=== PATIENT | male | born 1935 | race African-American/Black ===

== ENCOUNTER 2016-05-14 20:36 | Emergency (ER) | payer MEDICARE, BC ==
[~2016-05-14] VITALS: Ht 182.9 cm; Wt 78.5 kg
[~2016-05-14 20:36] MED LIST: AMLO5TAB2 PO; ASPI81TA2 PO; ATOR20TA58 PO; ATOR40TA59 PO; AZIT500T PO; CLIN300C86 PO; CLOP75TA27 PO; FERR-26 PO; HYDR-2868 PO; HYDR-971 PO; HYDR12.53 PO; IBUP-1060 PO; LISI10TA2 PO; LISI30TA4 PO; LISI40TA PO; METO25TA4 PO; METO50TA2 PO; NIAC500T PO; OMEP40CA2 PO; POLY10DR3 OD; SIMV20TA3 PO; TAMS0.4C2 PO
[2016-05-14] MEDS ORDERED: LABETALOL 20 MG/4 ML DISP.SYRIN. IVP ONE (21:30)
[2016-05-14 21:32] LABS: BASO % 1 % (0-3); EOS % 3 % (0-3); HEMATOCRIT 50.5 % (39.0-53.0); HEMOGLOBIN 16.7 g/dL (13.0-17.5); LYMPH # 2.3 x10^3/uL (1.0-4.8); LYMPH % 43 % (24-48); MEAN CORPUSCULAR HEMOGLOBIN 30 pg (25-35); MEAN CORPUSCULAR HGB CONC 33 g/dL (31-37); MEAN CORPUSCULAR VOLUME 92 fL (79-100); MONO % 10 % (0-9); NEUT % 43 % (31-73); PLATELET COUNT 239 x10^3/uL (140-400); RED BLOOD COUNT 5.51 x10^6/uL (4.30-5.70); RED CELL DISTRIBUTION WIDTH 14.2 % (11.5-14.5); WHITE BLOOD COUNT 5.4 x10^3/uL (4.0-11.0)
[2016-05-14 21:57] LABS: CALCIUM 9.4 mg/dL (8.5-10.1); CREATININE 1.2 mg/dL (0.7-1.3); GFR 70.9; POTASSIUM 4.2 mmol/L (3.5-5.1)
[2016-05-14 22:00] LABS: ALBUMIN 3.9 g/dL (3.4-5.0); DIRECT BILIRUBIN 0.1 mg/dL (0.0-0.2); MAGNESIUM 2.2 mg/dL (1.8-2.4); TOTAL BILIRUBIN 0.6 mg/dL (0.2-1.0); TOTAL PROTEIN 7.6 g/dL (6.4-8.2)
--- NOTE | 2016-05-14 22:11 | PHYS DOC ---
Past Medical History Past Medical History: CAD, GERD, High Cholesterol, Hypertension, Pancreatitis Past Surgical History: Angioplasty, Coronary Bypass Surgery, Other Additional Past Surgical Histo: Right shoulder, back surgery Alcohol Use: None Drug Use: None Adult General Chief Complaint Chief Complaint: HYPERTENSION HPI HPI 72-year-old male presenting to the emergency department today with high blood pressure. Reports his blood pressure being over 200 home. He also has a headache. He denies numbness weakness tingling. He denies chest pain shortness of breath flank pain hematuria or decreased urination. He denies palpitations. Onset today. Location vascular. Duration intermittent. No alleviating factors. He forgot to take his blood pressure medication this morning however did take approximate 2 hours ago. Review of systems is negative for fevers chills chest pain shortness of breath or oliguria. All other review of systems is negative unless otherwise noted in history of present illness. Review of Systems Review of Systems SEE ABOVE. Current Medications Current Medications Current Medications Medications (Trade) Dose Ordered Sig/Wander Start Time Stop Time Status Last Admin Dose Admin Labetalol HCl (Normodyne) 20 mg 1X ONCE 05/14/16 21:30 05/14/16 21:31 DC Allergies Allergies Allergies Coded Allergies Type Severity Reaction Last Updated Verified Penicillins Allergy Intermediate 03/12/16 No Physical Exam Physical Exam Constitutional: Well developed, well nourished, no acute distress, non-toxic appearance. HENT: Normocephalic, atraumatic, bilateral external ears normal, oropharynx moist, no oral exudates, nose normal. [] Eyes: PERRLA, EOMI, conjunctiva normal, no discharge. Neck: Normal range of motion, no tenderness, supple, no stridor. [] Cardiovascular:Heart rate regular rhythm, no murmur Lungs & Thorax: Bilateral breath sounds clear to auscultation Abdomen: Bowel sounds normal, soft, no tenderness, no masses, no pulsatile masses. [] Skin: Warm, dry, no erythema, no rash. Back: No tenderness, no CVA tenderness. [] Extremities: No tenderness, no cyanosis, no clubbing, ROM intact, no edema. Neurologic: Alert and oriented X 3, normal motor function, normal sensory function, no focal deficits noted. [] Psychologic: Affect normal, judgement normal, mood normal. [] Current Patient Data Vital Signs Vital Signs Date Time Temp Pulse Resp B/P Pulse Ox O2 Delivery O2 Flow Rate FiO2 05/14/16 20:46 98.6 80 16 203/116 97 Room Air 98.6 Lab Values Laboratory Tests Test 05/14/16 20:50 White Blood Count 5.4x10^3/uL (4.0-11.0) Red Blood Count 5.51x10^6/uL (4.30-5.70) Hemoglobin 16.7g/dL (13.0-17.5) Hematocrit 50.5% (39.0-53.0) Mean Corpuscular Volume 92fL (79-100) Mean Corpuscular Hemoglobin 30pg (25-35) Mean Corpuscular Hemoglobin Concent 33g/dL (31-37) Red Cell Distribution Width 14.2% (11.5-14.5) Platelet Count 239x10^3/uL (140-400) Neutrophils (%) (Auto) 43% (31-73) Lymphocytes (%) (Auto) 43% (24-48) Monocytes (%) (Auto) 10% (0-9) H Eosinophils (%) (Auto) 3% (0-3) Basophils (%) (Auto) 1% (0-3) Neutrophils # (Auto) 2.3x10^3uL (1.8-7.7) Lymphocytes # (Auto) 2.3x10^3/uL (1.0-4.8) Monocytes # (Auto) 0.6x10^3/uL (0.0-1.1) Eosinophils # (Auto) 0.1x10^3/uL (0.0-0.7) Basophils # (Auto) 0.0x10^3/uL (0.0-0.2) Sodium Level 143mmol/L (136-145) Potassium Level 4.2mmol/L (3.5-5.1) Chloride Level 105mmol/L (98-107) Carbon Dioxide Level 27mmol/L (21-32) Anion Gap 11 (6-14) Blood Urea Nitrogen 16mg/dL (8-26) Creatinine 1.2mg/dL (0.7-1.3) Estimated GFR (Cockcroft-Gault) 70.9 Glucose Level 76mg/dL (70-99) Calcium Level 9.4mg/dL (8.5-10.1) Phosphorus Level 3.0mg/dL (2.6-4.7) Magnesium Level 2.2mg/dL (1.8-2.4) Total Bilirubin 0.6mg/dL (0.2-1.0) Direct Bilirubin 0.1mg/dL (0.0-0.2) Aspartate Amino Transferase (AST) 26U/L (15-37) Alanine Aminotransferase (ALT) 25U/L (16-63) Alkaline Phosphatase 100U/L (46-116) Troponin I Quantitative < 0.017ng/mL (0.000-0.055) IB-Btu-Z-Type Natriuretic Peptide 195pg/mL (0-449) Total Protein 7.6g/dL (6.4-8.2) Albumin 3.9g/dL (3.4-5.0) Lipase 140U/L (73-393) Laboratory Tests 05/14/16 20:50 Laboratory Tests 05/14/16 20:50 EKG EKG []EKG shows sinus rhythm with regular rate. Normal intervals. Normal axis. ST segments are congruent. Not suggestive of ACS. Reviewed by myself. Radiology/Procedures Radiology/Procedures []Chest x-ray reviewed by myself shows no obvious infiltrate or pneumothorax present. No obvious acute cardiopulmonary process present. Course & Med Decision Making Course & Med Decision Making Pertinent Labs and Imaging studies reviewed. (See chart for details) [] 80-year-old male presenting to the emergency department today with high blood pressure headache. On EKG monitoring system the patient was noted to be in bigeminy and had multiple PVCs while in the emergency department. IV labetalol given for blood pressure. Patient was otherwise only symptomatic with a headache. Blood work was obtained showed a normal CBC. Chemistry panel unremarkable. Magnesium normal. Phosphorus normal. Given the patient's multiple PVCs the patient was referred to our cardiology team for possible holter placement, further evaluation workup and care. I discussed the case with the patient's primary care Dr. Yu who will be able to arrange close follow-up. Dragon Disclaimer Dragon Disclaimer This electronic medical record was generated, in whole or in part, using a voice recognition dictation system. Departure Departure Impression: Primary Impression: Hypertension Additional Impressions: Headache PVC (premature ventricular contraction) Disposition: 01 HOME, SELF-CARE Condition: STABLE Referrals: CATRACHITO YU MD (PCP) TANIA ESTRADA MD 1-2 days Patient Instructions: Hypertension, Premature Ventricular Contraction Additional Instructions: Thank you for allowing us to participate in your care today. Followup with Dr. Estrada in 2-3 days for evalation of multiple PVCs. If you do not have a primary care provider you can ask for a list of our primary care providers. Return to the emergency department you have any new or concerning findings. This should be evaluated by the primary care physician and any necessary consulting services for continued management within a few days after discharge. Return to emergency room if you have any new or concerning symptoms including but not limited to fever, chills, nausea, vomiting, intractable pain, any new rashes, chest pain, shortness of air, uncontrolled bleeding, difficulty breathing, and/or vision loss. You may have been prescribed medication that can change in your level of thinking and ability to operate machinery. These medications include hydrocodone and Ativan. Also, Benadryl has been known to do this as well. Be sure to check with your pharmacist and ask if the medications you've prescribed can affect your level of consciousness. I recommend not operating heavy machinery or driving while on medication such as these. Problem Qualifiers AG JONES MD May 14, 2016 22:12
[2016-05-14 23:11] VITALS: BP 136/63
--- NOTE | 2016-05-15 06:43 | EKG ---
[address] [place] [address] Test Date: 2016-05-14 Test Time: 20:57:26 Pat Name: TONA ALCOCER Department: Room: Gender: M Device Engineer: : 1935 Requested By: AG JONES Order Number: [id number] Reading MD: Measurements Intervals [place] Rate: 73 P: 37 MA: 166 QRS: -17 QRSD: 72 T: 64 QT: 376 QTc: 418 Interpretive Statements SINUS RHYTHM LEFT ATRIAL ABNORMALITY LEFTWARD AXIS ABNORMAL ECG RI6.01 No previous ECG available for comparison
--- NOTE | 2016-05-15 07:50 | RAD ---
Portable chest, 05/14/2016: History: Hypertension and PVCs Comparison is made to a study from 03/12/2016. There has been a previous median sternotomy. The heart size and pulmonary vascularity are normal. There is tortuosity and calcific plaquing of the thoracic aorta. No pulmonary infiltrates are seen. There is no evidence of pleural fluid. IMPRESSION: No acute cardiopulmonary abnormality is detected.
== END 2016-05-14 23:36 | disposition home or self-care (01) ==
LOC: ER 20:36
DX: I10 Essential (primary) hypertension (principal); I25.10 Atherosclerotic heart disease of native coronary artery without angina pectoris; E78.00 Pure hypercholesterolemia, unspecified; R51 Headache; I49.3 Ventricular premature depolarization; Z95.1 Presence of aortocoronary bypass graft; Z88.0 Allergy status to penicillin
CPT/HCPCS: 36415; 71010; 80048; 80076; 83690; 83735; 83880; 84100; 84484; 85027; 93005; 96374; 99285; J3490

== ENCOUNTER 2016-07-03 10:17 | Day surgery (SDC) | payer MEDICARE, BC ==
[~2016-07-03] VITALS: Ht 177.8 cm; Wt 77.1 kg
[~2016-07-03 10:17] MED LIST changes: +ATORVASTATIN CA80 MG PO; +CEFAZOLIN 2GM PREMIX 50 ML IV PRN; +DONE10TA7 PO; +EZET10TA3 PO; +FENTANYL PF 100 MCG/2 ML VIAL. IV PRN; +HYDROMORPHONE 2 MG/ML VIAL. IV PRN; +IV RINGERS,LACTATED 1000ML 1,000 ML IV SCH; +LIDOCAINE 1% 1 ML SYRINGE. ID PRN; +MORPHINE SULFATE 2 MG/ML DISP.SYRIN. IV PRN; +ONDANSETRON PF 4 MG/2 ML VIAL. IV PRN; +SULF1TAB24 PO
[2016-07-03] MEDS ORDERED: BUPIVAC MPF-EPI 0.5%-1:200000 30 ML VIAL. ONE (11:22)
[2016-07-03] MEDS ORDERED: IV RINGERS,LACTATED 1000ML 1,000 ML IV SCH (11:30)
[2016-07-03] MEDS ORDERED: FENTANYL PF 100 MCG/2 ML VIAL. ONE (11:59)
[2016-07-03] MEDS ORDERED: PROPOFOL 20 ML IV ONE (12:00)
--- NOTE | 2016-07-03 12:00 | PDOC ---
SURGICAL PROGRESS NOTE Subjective 81 yo M with painful RIH TO OR for repair R/B/A d/w pt NSCQIP calculator performed and placed on chart Office Note H&P reviewed and unchanged right side marked with patient. Vital Signs Vital Signs Date Time Temp Pulse Resp B/P Pulse Ox O2 Delivery O2 Flow Rate FiO2 07/03/16 11:14 98.3 62 18 149/92 98 Room Air 98.3 ANA M VANN MD Jul 03, 2016 12:00
[2016-07-03] MEDS ORDERED: EPHEDRINE PF IN SALINE 50 MG/5 ML DISP.SYRIN. IV ONE (12:18)
[2016-07-03] MEDS ORDERED: DEXAMETHASONE SOD PHOS 20 MG/5 ML VIAL. ONE (12:21)
[2016-07-03] MEDS ORDERED: ONDANSETRON PF 4 MG/2 ML VIAL. ONE (12:21)
[2016-07-03] MEDS ORDERED: MORPHINE SULFATE 10 MG/ML VIAL. ONE (12:51)
[2016-07-03] MEDS ORDERED: SEVOFLURANE 61 TO 120 MINUTES. IH ONE (13:03)
--- NOTE | 2016-07-03 13:21 | PDOC ---
BRIEF OPERATIVE NOTE Pre-Op Diagnosis RIH Post-Op Diagnosis same Procedure Performed RIH repair with mesh Surgeon Mc Anesthesia Type: General, Local Blood Loss 10 IV Fluid 700 Specimens Obtained rih hernia sac and cord lipoma Findings indirect hernia Complications none Additional Remarks [id number] ANA M VANN MD Jul 03, 2016 13:21
[2016-07-03] MEDS ORDERED: HYDR-2678 PO (13:40)
[2016-07-03] MEDS ORDERED: DOCU-27 PO (13:40)
--- NOTE | 2016-07-03 14:21 | OP ---
DATE OF SURGERY: 07/03/2016 REFERRING PHYSICIAN: Dr. Catrachito Benitez. Thank you for the consult. PREOPERATIVE DIAGNOSIS: Right inguinal hernia with pain. POSTOPERATIVE DIAGNOSIS: Right inguinal hernia with pain. PROCEDURE: Right inguinal hernia repair with mesh. SURGEON: Naeem Vann MD ESTIMATED BLOOD LOSS: 10 mL. FLUIDS: 700 mL. COMPLICATIONS: None. FINDINGS: Large indirect hernia chronically scarred. INDICATIONS: A 81-year-old male with right groin bulge and pain who was identified to have a reducible right inguinal hernia. Inguinal hernia repair is indicated given the patient's pain and concern for possible incarceration despite his history of smoking. The patient was informed of the risks, benefits, alternatives to procedure, risks including but not limited to bleeding, infection, damage to surrounding structures, risk of anesthesia, risk of an open procedure, risk of hernia recurrence, and risk of nerve injury. NSQIP risk calculator was used and documented in the chart. The patient appears to understand, and his insightful questions were answered, and he agreed to proceed. DESCRIPTION OF PROCEDURE: After obtaining informed consent, the patient was taken to the operating room, induced under general endotracheal anesthetic. The patient was prepped and draped in the usual fashion in the right groin area. Marcaine 0.5% with epinephrine was injected in transverse incision. Incision was made using electrocautery. Subcutaneous tissue was divided using electrocautery. Cheryl's fascia was divided using electrocautery. External oblique was identified by the direction of its fibers, was noted to be somewhat bruised especially at the external ring. The external oblique was opened in the direction of its fibers using a 15-blade scalpel and Metzenbaum scissors. Spermatic cord was identified and wrapped around with a [place] drain. The floor of the inguinal canal was intact without evidence of direct hernia. An indirect hernia was identified on the medial anterior aspect of the spermatic cord. Spermatic cord structures were maintained without injury including the vas deferens by palpation surrounding it by a [place] drain. Large cord lipoma and the indirect hernia sac were sequentially dissected down using careful sharp and blunt dissection. The hernia sac was especially chronically scarred, and there was no viscera within it. High ligation was performed using a 3-0 Vicryl stitch. The hernia sac and cord lipoma were resected and passed out of field and sent to Pathology for evaluation. A large mesh plug was placed in the defect. The external mesh onlay was placed around the spermatic cord and reapproximated the internal ring and tacked in and secured with a 0 Vicryl stitch. The external oblique was then secured over this using continuous 3-0 Vicryl stitch. Subcutaneous tissues were reapproximated with 3-0 Vicryl. Skin incisions were approximated with 4-0 Monocryl in subcuticular fashion. Sterile dressing was placed over all wounds. The patient tolerated the procedure well and was discharged to Recovery Room in stable condition. All counts were correct. There were no immediate complications. NAEEM VANN MD DR: ANATOLY/bill JOB#: [id number] / [id number] CATRACHITO Hoffmann MD
[2016-07-03] MEDS: PROCHLORPERAZINE 10 MG/2 ML VIAL. IV PRN ×2 (14:50→15:07)
[2016-07-03] MEDS ORDERED: HALOPERIDOL LACTATE 5 MG/ML VIAL. IVP PRN (16:45)
[2016-07-03] MEDS ORDERED: METOCLOPRAMIDE HCL 10 MG/2 ML VIAL. IV ONE (16:45)
[2016-07-03] MEDS ORDERED: SCOPOLAMINE 1.5MG PATCH. TD ONE (17:00)
[2016-07-03 17:01] VITALS: BP 147/72
[2016-07-03] MEDS ORDERED: ONDANSETRON PF 4 MG/2 ML VIAL. IV PRN (17:26)
--- NOTE | 2016-07-05 14:44 | PATHOLOGY ---
PATHOLOGY REPORT * * * * * * * * FINAL DIAGNOSIS: Segments of focal mesothelial-lined fibromembranous and fibroadipose tissue, right inguinal hernia repair: - Lipoma of cord. - Hernia sac showing focal reactive mesothelial hyperplasia, focal submesothelial reactive fibrosis, and congestion. (JPM:; d/t: 07/05/16) REPORT ELECTRONICALLY SIGNED BY: Keith Johnson M.D. DATE/TIME: 07/05/2016 14:43 * * * * * * * * GROSS PATHOLOGY: A Received in formalin labeled "Tona Reynaga Sr - right inguinal hernia sac and cord lipoma," are several segments of blood-tinged, pink-casillas to yellow-casillas membranous and fibroadipose tissue, consistent with a hernia sac, measuring 4.3 x 1.5 x 1.4 cm in aggregate. No nodules or lesions are identified. Also received is a segment of lobulated fibroadipose tissue, consistent with a lipoma, measuring 5.5 x 1.9 x 1.3 cm in maximum dimensions. Sectioning reveals homogeneous, bright yellow cut surfaces. Rock [employer] sections to include the hernia sac and lipoma are submitted in cassette A1. (TTL; 07/04/2016) INITIAL CPT CODE(S): 38698 Professional services performed [place] [address] Technical services performed by [facility] at [address] [place] [address], [facility] [address], [place] [address]. SPECIMEN(S) RECEIVED: A.Right inguinal hernia sac and cord lipoma CLINICAL HISTORY: Right inguinal hernia PATIENT: TONA REYNAGA SR /AGE: 3 1935 (Age: 81) PATIENT #: [id number] ALT CASE #: SPECIMEN COLLECTION DATE: 07/03/2016 SPECIMEN RECEIVED DATE: 07/04/2016 [facility] - [address] [place] [address] - PHONE: [phone] * * * END OF REPORT * * *
== END 2016-07-03 17:30 | disposition home or self-care (01) ==
LOC: SURG 10:17 → MERGE 12:00 → SURG 17:30
PROVIDERS: ATTEND Surgery
DX: K40.90 Unilateral inguinal hernia, without obstruction or gangrene, not specified as recurrent (principal); K21.9 Gastro-esophageal reflux disease without esophagitis; I25.10 Atherosclerotic heart disease of native coronary artery without angina pectoris; E78.00 Pure hypercholesterolemia, unspecified; I10 Essential (primary) hypertension; Z98.41 Cataract extraction status, right eye; Z98.42 Cataract extraction status, left eye; D17.6 Benign lipomatous neoplasm of spermatic cord
CPT/HCPCS: 49505; 88304; C1781; J0690; J0780; J1100; J2270; J2405; J2704; J2765; J3010; J3490

== ENCOUNTER → 2016-07-25 | Outpatient (CLI) | payer MEDICARE ==
[2016-07-03 17:01] VITALS: BP 147/72
[~2016-07-25] MED LIST changes: -CEFAZOLIN 2GM PREMIX 50 ML IV PRN; +DOCU-27 PO; -FENTANYL PF 100 MCG/2 ML VIAL. IV PRN; +HYDR-2678 PO; -HYDROMORPHONE 2 MG/ML VIAL. IV PRN; -IV RINGERS,LACTATED 1000ML 1,000 ML IV SCH; -LIDOCAINE 1% 1 ML SYRINGE. ID PRN; -MORPHINE SULFATE 2 MG/ML DISP.SYRIN. IV PRN; -ONDANSETRON PF 4 MG/2 ML VIAL. IV PRN
--- NOTE | 2016-07-26 03:59 | PAIN ---
DATE OF SERVICE: 07/25/2016 INITIAL CONSULTATION CHIEF COMPLAINT: Anterior left chest pain. HISTORY OF PRESENT ILLNESS: This is a 81-year-old male who presents with history of pain for about 2 years, worse over the past 1 year. He had open heart surgery with sternotomy in 04/2014 and did well for about a year, but over the past year, the pain has been beginning to increase in front of his chest and just left of his sternum anteriorly only. The patient reports the pain does not radiate anywhere, but it is worse with deep breathing, movement of his chest and sternum with rotational movements, especially deep breathing or using his upper extremities such as lifting, using his pectoral muscles to lift or bend or push off an item with even minimal pressure. The patient reports only on the left side, no significant pain on the right side. The patient does have sternal wires holding the sternum together, which were placed 2 years ago, but again did well for the first year. The pain has only been there after he had an inguinal hernia repair on the right side, which was more recently and the pain has been noticeable after that time. The patient reports no radiation of pain. No other complaints at this time. The pain is described as sharp, throbbing, stabbing, changes during the day, worse at night, worse with deep breath and coughing, change in positions. The patient reports it awakens him from sleep at least 2-3 times at night every night. It does not affect his bowel or bladder control or his ability to ambulate or walk, but is difficult with using his upper extremities or his upper torso with any activity at all. PAST MEDICAL HISTORY: Significant for hypertension, shortness of breath, cigarette smoking, gastroesophageal reflux, coronary artery disease. PAST SURGICAL HISTORY: Previous surgeries include coronary artery bypass grafting in 2014, lumbar diskectomy and laminectomy, also cervical diskectomy and laminectomy, previous cataract extractions, right shoulder surgery, coronary stents placed in the past, left inguinal hernia repair, and right inguinal hernia repair. CURRENT MEDICATIONS: Include daily baby aspirin, omeprazole, lisinopril, atorvastatin, amlodipine, tamsulosin, Zetia, metoprolol, Viagra. ALLERGIES: THE PATIENT IS ALLERGIC TO PENICILLIN. FAMILY HISTORY: Significant for cardiovascular disease. SOCIAL HISTORY: The patient smokes 5 or less cigarettes a day, continues to smoke for the last 50 years. The patient does not drink alcohol, does not use any other illegal or illicit drugs or other substances. The patient lives locally on his own. REVIEW OF SYSTEMS: The patient's review of systems is positive for those items mentioned in the history of present illness. All systems reviewed and otherwise negative. It is complete, full and well documented on the patient's chart. PHYSICAL EXAMINATION: VITAL SIGNS: Today, the patient's blood pressure is 147/88, pulse 80, respirations 18, temperature 98.1 degrees Fahrenheit. Height is 6 feet, weight is 168 pounds. GENERAL: The patient is awake, alert, oriented, appropriate, very pleasant demeanor. HEENT: Shows normocephalic and atraumatic. Extraocular movements are intact and symmetrical. Oral cavity: Mucous membranes are moist and pink. Dentition is intact. NECK: Shows anterior throat supple without palpable lymphadenopathy noted. Swallow reflex is symmetrical. CHEST: Shows normal on inspection. Breath sounds are clear to auscultation bilaterally. HEART: Shows S1 and S2 clear. Previous well-healed surgical sternotomy scars noted. Easily palpable sternal wires underneath the scar, but are not protruding in any way and are not specifically tender with palpation over these regions. With palpation on the left lateral border and just beyond this on the costochondral border of the left sternum, significant tenderness in 5 of the costochondral joint cartilages, superior to inferior, essentially the distance of the upper 3 quarters of the sternum laterally. No specific radiation of pain, but very tender, very painful areas. Right side shows no tender areas in the same region on the right lateral sternum and the costochondral borders. IMPRESSION: 1. 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 2. Cigarette smoking. 3. Hypertension. 4. Coronary artery disease. PLAN: Options were discussed with the patient including conservative medical management, physical therapy, TENS unit, ultrasound treatment and interventional technique. She would like to pursue interventional techniques. We discussed costochondral joint injections using C-arm fluoroscopic guidance to identify the areas of the costochondral cartilages in the ribs. The patient would like to proceed with this. Risks were discussed including but not limited to bleeding, infection, possibility of intravascular injection sequelae, spread of local anesthetic and numbness, pneumothorax, side effects of steroid medications, exposure to fluoroscopy and poor results regarding pain control. The patient understands and wishes to proceed. The patient will return to the clinic in approximately 2 weeks for followup. He was counseled on return appointment, activity level and side effects to be aware of. ALEXANDRE PEDRO MD DR: JUSTO/bill JOB#: [id number] / [id number]
== END | disposition home or self-care (01) ==
LOC: PNCL 12:49
PROVIDERS: ATTEND Anesthesiology
DX: R07.89 Other chest pain (principal); I10 Essential (primary) hypertension; F17.210 Nicotine dependence, cigarettes, uncomplicated; I25.10 Atherosclerotic heart disease of native coronary artery without angina pectoris; E78.00 Pure hypercholesterolemia, unspecified; K21.9 Gastro-esophageal reflux disease without esophagitis; Z82.49 Family history of ischemic heart disease and other diseases of the circulatory system; Z98.41 Cataract extraction status, right eye; Z98.42 Cataract extraction status, left eye; Z87.39 Personal history of other diseases of the musculoskeletal system and connective tissue
CPT/HCPCS: 20600; 77002

== ENCOUNTER → 2016-08-08 | Outpatient (CLI) | payer MEDICARE ==
[~2016-08-08] MED LIST changes: +BUPIVACAINE MPF 0.5% 30 ML VIAL. ONE; +methylPREDNISolone ACETATE 80 MG/ML VIAL. ONE
--- NOTE | 2016-08-09 09:43 | PAIN ---
DATE OF SERVICE: 08/08/2016 HISTORY OF PRESENT ILLNESS: The patient is a 81-year-old male who returns for followup status post left sternocostal joint injections on 07/25/2016. The patient reports he did fairly well initially, but the pain returned fairly quickly after a day or two with no long-lasting decrease in pain. The patient reports still significant pain in the left side of the chest, worse with lying down on the left side trying to sleep, it awakens him several times, he has to reposition. He is trying to sleep on his back, but he is having difficulty doing this. The patient reports his pain is anywhere from a 7 to a 9 on a scale of 10, it is currently 7 on exam today. The pain is sharp, tight, shooting. It is off and on, but it is present and disturbing his sleep, mostly when he is lying on his left side. The patient reports no new motor or sensory deficits or other complaints, still with left-sided chest pain. PHYSICAL EXAMINATION: VITAL SIGNS: The patient's blood pressure is 155/101, pulse 80, respirations 18, temperature 98.6 degrees Fahrenheit, height is 6 feet, weight is 168 pounds. GENERAL: The patient is awake, alert, oriented, appropriate, very pleasant demeanor. HEENT: Shows normocephalic and atraumatic. The patient is wearing eyeglasses. Oral cavity shows mucous membranes are moist and pink. Dentition is intact. NECK: Shows anterior throat supple without palpable lymphadenopathy noted. Swallow reflex is symmetrical. Neck shows full rotational motion of the cervical spine without difficulty. CHEST: Shows normal with inspection. Previously well-healed surgical scar is noted in the midline. Breath sounds are clear to auscultation bilaterally. HEART: Shows S1 and S2 clear. No murmurs are auscultated. BACK: With palpation in the left sternal border and into the costochondral cartilages sternal chondral cartilages on the left side, very tender significantly, severely tender with palpation over the first 5 cartilages superiorly and inferiorly. Inferior to this, it is not significantly tender and no tenderness with further lateral palpation onto the ribs to the mid axillary line as well. No radiation of pain. Right side shows no significant tenderness over the sternocostal or costochondral cartilages on the right as well. Options were discussed with the patient and the patient's old chart was reviewed as his current medication regimen and updated. Current review of systems updated today as well. We will proceed with a left-sided sternocostal joint injection with fluoroscopic guidance. Risks were again discussed including but not limited to bleeding, infection, possibility of intravascular injection sequelae, spread of local anesthetic and numbness, absorption of local anesthetic, pneumothorax as well as C-arm exposure and poor results regarding pain control. The patient understands and wishes to proceed. The patient will return to the clinic in approximately 2 weeks for followup. He was counseled on his return appointment, activity level and side effects to be aware of. DIAGNOSIS: Left sternal chondritis. PROCEDURE: Left-sided sternocostal joint injections x 5 with C-arm fluoroscopic guidance under sterile prep and drape using local anesthetic. MEDICATION INJECTED: A total of 5 mL of 0.5% bupivacaine and a total of 80 mg of Depo-Medrol after negative aspiration at each level. CONDITION AT DISCHARGE: Stable. The patient tolerated the procedure well and had no complications. ALEXANDRE PEDRO MD DR: JUSTO/bill JOB#: [id number] / [id number]
== END | disposition home or self-care (01) ==
LOC: PNCL 10:52
PROVIDERS: ATTEND Anesthesiology
DX: M94.8X8 Other specified disorders of cartilage, other site (principal); E78.00 Pure hypercholesterolemia, unspecified; I10 Essential (primary) hypertension; Z72.0 Tobacco use; K21.9 Gastro-esophageal reflux disease without esophagitis; Z87.39 Personal history of other diseases of the musculoskeletal system and connective tissue; I25.10 Atherosclerotic heart disease of native coronary artery without angina pectoris
CPT/HCPCS: 20600; 77002; J1040; J3490

== ENCOUNTER 2016-09-02 03:41 | Emergency (ER) | payer MEDICARE ==
[~2016-09-02] VITALS: Ht 182.9 cm; Wt 76.2 kg
[~2016-09-02 03:41] MED LIST changes: +ASPI-630 PO; -ASPI81TA2 PO; -BUPIVACAINE MPF 0.5% 30 ML VIAL. ONE; +CLIN300C8 PO; -CLIN300C86 PO; -CLOP75TA27 PO; +CLOP75TA57 PO; +DOCU-109 PO; -DOCU-27 PO; +EZET10TA18 PO; -EZET10TA3 PO; -methylPREDNISolone ACETATE 80 MG/ML VIAL. ONE
[2016-09-02 04:59] VITALS: BP 199/96
[2016-09-02] MEDS ORDERED: LIDOCAINE 1% / SOD BICARB 8.4% 20 ML VIAL. IJ ONE (05:30)
--- NOTE | 2016-09-02 05:43 | PHYS DOC ---
Past Medical History Past Medical History: CAD, GERD, High Cholesterol, Hypertension, Pancreatitis Past Surgical History: Angioplasty, Coronary Bypass Surgery, Other Additional Past Surgical Histo: Right shoulder, back surgery Alcohol Use: None Drug Use: None Adult General Chief Complaint Chief Complaint: SKIN RASH/ABSCESS HPI HPI 81 yo male who presents with a left axillary abscess for the past few days that has been bothersome and preventing him from sleeping. Pt denies any fever or chills. He is non-diabetic. The abscess is approximately 2 cm and isolated to the left axillary area only. He denies any purulent drainage from the wound site. Review of Systems Review of Systems Constitutional: Denies fever or chills [] Eyes: Denies change in visual acuity, redness, or eye pain [] HENT: Denies nasal congestion or sore throat [] Respiratory: Denies cough or shortness of breath [] Cardiovascular: No additional information not addressed in HPI [] GI: Denies abdominal pain, nausea, vomiting, bloody stools or diarrhea [] : Denies dysuria or hematuria [] Musculoskeletal: Denies back pain or joint pain [] Integument: Denies rash or skin lesions [] Neurologic: Denies headache, focal weakness or sensory changes [] Endocrine: Denies polyuria or polydipsia [] Current Medications Current Medications Current Medications Medications (Trade) Dose Ordered Sig/Wander Start Time Stop Time Status Last Admin Dose Admin Lidocaine/Sodium Bicarbonate (Buffered Lidocaine 1%) 20 ml 1X ONCE 09/02/16 05:30 09/02/16 05:31 DC 09/02/16 05:15 20 ML Allergies Allergies Allergies Coded Allergies Type Severity Reaction Last Updated Verified Penicillins Allergy Intermediate Unknown 07/03/16 No Physical Exam Physical Exam Constitutional: Well developed, well nourished, no acute distress, non-toxic appearance. [] HENT: Normocephalic, atraumatic, bilateral external ears normal, oropharynx moist, no oral exudates, nose normal. [] Eyes: PERRLA, EOMI, conjunctiva normal, no discharge. [] Neck: Normal range of motion, no tenderness, supple, no stridor. [] Cardiovascular:Heart rate regular rhythm, no murmur [] Lungs & Thorax: Bilateral breath sounds clear to auscultation [] Abdomen: Bowel sounds normal, soft, no tenderness, no masses, no pulsatile masses. [] Skin: Warm, dry, mild area of fluctuance and erythema c/w abscess approximately 2 cm in diameter in the left axillary area. [] Back: No tenderness, no CVA tenderness. [] Extremities: No tenderness, no cyanosis, no clubbing, ROM intact, no edema. [] Neurologic: Alert and oriented X 3, normal motor function, normal sensory function, no focal deficits noted. [] Psychologic: Affect normal, judgement normal, mood normal. [] Current Patient Data Vital Signs Vital Signs Date Time Temp Pulse Resp B/P (MAP) Pulse Ox O2 Delivery O2 Flow Rate FiO2 09/02/16 04:59 98.0 72 17 199/96 (130) 99 Room Air 98.0 EKG EKG [] Radiology/Procedures Radiology/Procedures [] Course & Med Decision Making Course & Med Decision Making Pertinent Labs and Imaging studies reviewed. (See chart for details) This 81 yo male with an uncomplicated abscess had an incision and drainage and the area packed with iodoform gauze with significant relief of his symptoms. Pt was instructed to have the wound site reevaluated in the next 2-3 days and to return if he develops any worsening pain, swelling, or fever. Return precautions were provided and acknowledged by the patient. Dragon Disclaimer Dragon Disclaimer This electronic medical record was generated, in whole or in part, using a voice recognition dictation system. Incision and Drainage Indication: abscess Procedure: The patient was positioned appropriately. Local anesthesia was 1% lidocaine. An incision was then made over the apex of the lesion and serosanguinous material was expressed. The drainage cavity was irrigated and packed with sterile gauze. The patients tetanus status updated as needed. The patient tolerated the procedure well. Complications: none. Departure Departure Impression: Primary Impression: Abscess Disposition: 01 HOME, SELF-CARE Admitting Physician: Other Condition: STABLE Referrals: CATRACHITO YU MD (PCP) Patient Instructions: Abscess, [id number], Incision and Drainage, Care After Additional Instructions: Please follow up with your primary doctor in the next 2-3 days as discussed to have your wound rechecked and your gauze removed. Return to the ER if you develop any worsening of your symptoms. TUNG IRIZARRY DO Sep 02, 2016 05:43
== END 2016-09-02 05:56 | disposition home or self-care (01) ==
LOC: ER 03:41
DX: L02.412 Cutaneous abscess of left axilla (principal); I25.10 Atherosclerotic heart disease of native coronary artery without angina pectoris; K21.9 Gastro-esophageal reflux disease without esophagitis; E78.00 Pure hypercholesterolemia, unspecified; I10 Essential (primary) hypertension; Z95.1 Presence of aortocoronary bypass graft; Z88.0 Allergy status to penicillin
CPT/HCPCS: 10060; 99283-25

== ENCOUNTER 2016-09-15 10:12 | Emergency (ER) | payer MEDICARE ==
[~2016-09-15] VITALS: Ht 182.9 cm; Wt 77.1 kg
[2016-09-15 10:25] VITALS: BP 187/100
[2016-09-15] MEDS ORDERED: DIPHTH,PERTUSS(ACELL),TET TOX 0.5 ML DISP.SYRIN. VAX IM ONE (11:30)
[2016-09-15] MEDS ORDERED: LIDOCAINE 1% / SOD BICARB 8.4% 20 ML VIAL. IJ ONE (11:30)
[2016-09-15] MEDS ORDERED: MUPI15CR TP (12:14)
[2016-09-15] MEDS ORDERED: SULF1TAB24 PO (12:14)
--- NOTE | 2016-09-15 12:14 | PHYS DOC ---
Past Medical History Past Medical History: CAD, GERD, High Cholesterol, Hypertension, Pancreatitis Past Surgical History: Angioplasty, Coronary Bypass Surgery, Other Additional Past Surgical Histo: Right shoulder, back surgery Alcohol Use: None Drug Use: None Adult General Chief Complaint Chief Complaint: ABSCESS HPI HPI Patient is a 81 year old male with history of hypertension CAD pancreatitis high cholesterol who presents today with right axilla abscess for 1-1/2 weeks. Patient states he has had history of right axilla abscesses before. He states he was seen in the ED 2 weeks ago for similar abscess and it was drained. He states he was not sent home with anything. He states he was never given a tetanus shot. Review of Systems Review of Systems Constitutional: Denies fever or chills [] Eyes: Denies change in visual acuity, redness, or eye pain [] HENT: Denies nasal congestion or sore throat [] Musculoskeletal: Denies back pain or joint pain [] Integument: right axilla abscesses Neurologic: Denies headache, focal weakness or sensory changes [] Endocrine: Denies polyuria or polydipsia [] Current Medications Current Medications Current Medications Medications (Trade) Dose Ordered Sig/Wander Start Time Stop Time Status Last Admin Dose Admin Diphtheria/ Tetanus/Acell Pertussis (Boostrix) 0.5 ml ONCE ONCE 09/15/16 11:30 09/15/16 11:31 DC 09/15/16 11:08 0.5 ML Lidocaine/Sodium Bicarbonate (Buffered Lidocaine 1%) 20 ml 1X ONCE 09/15/16 11:30 09/15/16 11:31 DC 09/15/16 11:07 20 ML Allergies Allergies Allergies Coded Allergies Type Severity Reaction Last Updated Verified Penicillins Allergy Intermediate Unknown 07/03/16 No Physical Exam Physical Exam Constitutional: Well developed, well nourished, no acute distress, non-toxic appearance. [] HENT: Normocephalic, atraumatic, bilateral external ears normal, oropharynx moist, no oral exudates, nose normal. [] Skin: Right axilla 0.5 x 0.5 indurated area consistent with an abscess. The area has slight erythema, it is warm to touch and tender to palpate. Back: No tenderness, no CVA tenderness. [] Extremities: No tenderness, no cyanosis, no clubbing, ROM intact, no edema. [] Neurologic: Alert and oriented X 3, normal motor function, normal sensory function, no focal deficits noted. [] Psychologic: Affect normal, judgement normal, mood normal. [] Current Patient Data Vital Signs Vital Signs Date Time Temp Pulse Resp B/P (MAP) Pulse Ox O2 Delivery O2 Flow Rate FiO2 09/15/16 10:25 98.4 84 16 97 Room Air 98.4 EKG EKG [] Radiology/Procedures Radiology/Procedures Indication: abscess of the right axilla Procedure: The patient was positioned appropriately. Local anesthesia was 1% buffered lidocaine. An incision was then made using an 11 blade over the apex of the lesion and small amount of yellow bloody material was expressed. The drainage cavity was irrigated and covered with sterile gauze. Patients tetanus status updated as needed. The patient tolerated the procedure well. Complications: none.[] Course & Med Decision Making Course & Med Decision Making Pertinent Labs and Imaging studies reviewed. (See chart for details) Patient has right axilla abscess that was drained by me as noted in procedures. He was given tetanus shot. He was discharged with Bactroban and Bactrim. He was provided return precautions. He is to follow-up with his own PCP in 2 weeks. Dragon Disclaimer Dragon Disclaimer This electronic medical record was generated, in whole or in part, using a voice recognition dictation system. Departure Departure Impression: Primary Impression: Abscess of axilla, right Disposition: 01 HOME, SELF-CARE Condition: STABLE Referrals: CATRACHITO YU MD (PCP) follow up with your doctor in 1-2 weeks Patient Instructions: Abscess, Care After Additional Instructions: You were seen for right axilla abscess that was drained as noted in procedures. Please keep the area clean and dry. Use the medications provided as prescribed. Apply warm compresses to the area twice a day. Follow-up with your own doctor in 1-2 weeks. Come back to the ED if symptoms worsen. Scripts Mupirocin Calcium (BACTROBAN CREAM) 15 Gm Cream..g. 1 NICKY TP TID, #30 GM Prov: CORNELIA CHERRY APRN 09/15/16 Sulfamethoxazole/Trimethoprim (BACTRIM DS TABLET) 1 Each Tablet 1 TAB PO BID, #20 TAB Prov: CORNELIA CHERRY APRN 09/15/16 CORNELIA CHERRY APRN Sep 15, 2016 12:14
== END 2016-09-15 12:20 | disposition home or self-care (01) ==
LOC: ER 10:12
DX: L02.411 Cutaneous abscess of right axilla (principal); I25.10 Atherosclerotic heart disease of native coronary artery without angina pectoris; K21.9 Gastro-esophageal reflux disease without esophagitis; E78.00 Pure hypercholesterolemia, unspecified; I10 Essential (primary) hypertension; Z95.1 Presence of aortocoronary bypass graft; Z88.0 Allergy status to penicillin
CPT/HCPCS: 10060; 90471; 90715; 99283-25

== ENCOUNTER 2016-11-06 10:52 | Emergency (ER) | payer MEDICARE ==
[~2016-11-06] VITALS: Ht 180.3 cm; Wt 74.8 kg
[~2016-11-06 10:52] MED LIST changes: +MUPI15CR TP
[2016-11-06 11:20] VITALS: BP 199/105
[2016-11-06] MEDS ORDERED: ACET325T9 PO (11:36)
--- NOTE | 2016-11-06 11:37 | PHYS DOC ---
Past Medical History Past Medical History: CAD, GERD, High Cholesterol, Hypertension, Pancreatitis Past Surgical History: Angioplasty, Coronary Bypass Surgery, Other Additional Past Surgical Histo: Right shoulder, back surgery Alcohol Use: None Drug Use: None Adult General Chief Complaint Chief Complaint: KNEE INJURY HPI HPI 81-year-old male presenting to the emergency department today with right knee pain. He reports walking down a few stairs when he tripped and injured his right knee. He has a sharp mild pain that is associated with swelling. The pain is nonradiating intermittent and worse with walking. He denies any other injuries. Review of systems is negative for chest pain shortness of breath and pain head injury neck pain. All other review of systems is negative unless otherwise noted in history of present illness. ED course: 81-year-old male presenting to the emergency department with right knee pain. X-rays obtained. Which showed an opacification of the right medial condyle. I discussed the case with Dr. Kelsey at 1152 and MINA Melendrez MD the radiologist about the case. The patient's symptomatology and clinical presentation suggest an injury in that location that is acute. The radiologist feels that the plain films do not suggest acute injury. Our orthopedic surgeon Dr. Kelsey recommends outpatient follow-up and MRI. She recommends to allow the patient to weight-bear as tolerated and symptomatically relief. The patient was then discharged home to follow up with ortho. The patient was then discharged home in stable condition. They were to return if their symptoms worsened or if they were concerned for any reason. [id number] discharge instructions and return precautions were given. Patient's questions were answered to their satisfaction. Patient is comfortable plan. Review of Systems Review of Systems SEE ABOVE. Allergies Allergies Allergies Coded Allergies Type Severity Reaction Last Updated Verified Penicillins Allergy Intermediate Unknown 07/03/16 No Physical Exam Physical Exam SEE ABOVE Constitutional: Well developed, well nourished, no acute distress, non-toxic appearance. [] HENT: Normocephalic, atraumatic, bilateral external ears normal, oropharynx moist, no oral exudates, nose normal. Eyes: PERRLA, EOMI, conjunctiva normal, no discharge. [] Neck: Normal range of motion, no tenderness, supple, no stridor. Cardiovascular:Heart rate regular rhythm, no murmur [] chest wall has healing surgical wound that is clean dry and intact Lungs & Thorax: Bilateral breath sounds clear to auscultation Abdomen: Bowel sounds normal, soft, no tenderness, no masses, no pulsatile masses. [] Skin: Warm, dry, no erythema, no rash. [] Back: No tenderness, no CVA tenderness. Extremities: right knee is mildly swollen on the medial aspect. nl rom. minimal pain with passive rom. palpable pulse with 2 sec cap refill. Neurologic: Alert and oriented X 3, normal motor function, normal sensory function, no focal deficits noted. [] Psychologic: Affect normal, judgement normal, mood normal. [] EKG EKG [] Radiology/Procedures Radiology/Procedures [] Course & Med Decision Making Course & Med Decision Making Pertinent Labs and Imaging studies reviewed. (See chart for details) [] Dragon Disclaimer Dragon Disclaimer This electronic medical record was generated, in whole or in part, using a voice recognition dictation system. Departure Departure Impression: Primary Impression: Right knee pain Disposition: HOME, SELF-CARE Condition: STABLE Referrals: CATRACHITO YU MD (PCP) JUHI KELSEY MD Patient Instructions: Knee Pain Additional Instructions: Thank you for allowing us to participate in your care today. Followup with your primary care physician in 3 days if your symptoms do not improve. Call your Primary Doctor tomorrow and inform them of your visit today. If you do not have a primary care provider you can ask for a list of our primary care providers. Return to the emergency department you have any new or concerning findings. This should be evaluated by the primary care physician and any necessary consulting services for continued management within a few days after discharge. Return to emergency room if you have any new or concerning symptoms including but not limited to fever, chills, nausea, vomiting, intractable pain, any new rashes, chest pain, shortness of air, uncontrolled bleeding, difficulty breathing, and/or vision loss. Scripts Acetaminophen (TYLENOL) 325 Mg Tablet 650 MG PO PRN Q8HRS Y for PAIN, #20 TAB 0 Refills Prov: AG JONES MD 11/06/16 AG JONES MD Nov 06, 2016 11:37
--- NOTE | 2016-11-06 11:39 | RAD ---
Three-view right knee radiographs 11/06/2016 Clinical history: Patient fell in garage and is having pain in the medial aspect of the right knee with swelling. AP, lateral and oblique digital radiographs of the right knee were obtained. No fracture or dislocation of the right knee is seen. Mild to moderate degenerative changes are seen involving all 3 compartments of both knees. Atherosclerotic calcification of the right popliteal artery and its branches is noted. Impression: No acute fracture or dislocation of the right knee is seen.
== END 2016-11-06 12:25 | disposition home or self-care (01) ==
LOC: ER 10:52
DX: M25.561 Pain in right knee (principal); R22.41 Localized swelling, mass and lump, right lower limb; I10 Essential (primary) hypertension; E78.00 Pure hypercholesterolemia, unspecified; K21.9 Gastro-esophageal reflux disease without esophagitis; I25.810 Atherosclerosis of coronary artery bypass graft(s) without angina pectoris; Z88.0 Allergy status to penicillin; W01.0XXA Fall on same level from slipping, tripping and stumbling without subsequent striking against object, initial encounter; Y93.89 Activity, other specified; Y99.8 Other external cause status; Y92.89 Other specified places as the place of occurrence of the external cause
CPT/HCPCS: 73562; 99284

== ENCOUNTER 2017-04-19 12:41 | Emergency (ER) | payer MEDICARE ==
[2017-04-19] MEDS: IV NORMAL SALINE 1000ML BAG 1,000 ML IV (13:40)
[2017-04-19 14:37] LABS: ADD MAN DIFF? NO
[2017-04-19 14:47] LABS: BASO % 1 % (0-3); EOS # 0.2 x10^3/uL (0.0-0.7); EOS % 4 % (0-3); HEMOGLOBIN 14.3 g/dL (13.0-17.5); LYMPH # 1.6 x10^3/uL (1.0-4.8); LYMPH % 34 % (24-48); MEAN CORPUSCULAR HEMOGLOBIN 31 pg (25-35); MEAN CORPUSCULAR HGB CONC 33 g/dL (31-37); MEAN CORPUSCULAR VOLUME 94 fL (79-100); MONO # 0.5 x10^3/uL (0.0-1.1); MONO % 10 % (0-9); NEUT # 2.3 x10^3uL (1.8-7.7); NEUT % 51 % (31-73); PLATELET COUNT 305 x10^3/uL (140-400); RED BLOOD COUNT 4.56 x10^6/uL (4.30-5.70); RED CELL DISTRIBUTION WIDTH 15.3 % (11.5-14.5); WHITE BLOOD COUNT 4.6 x10^3/uL (4.0-11.0)
[2017-04-19 15:01] LABS: ANION GAP 10 (6-14); BLOOD UREA NITROGEN 14 mg/dL (8-26); BUN/CREATININE RATIO 12 (6-20); CALCIUM 9.7 mg/dL (8.5-10.1); CARBON DIOXIDE 30 mmol/L (21-32); CHLORIDE 102 mmol/L (98-107); CREATININE 1.2 mg/dL (0.7-1.3); GFR 70.7; GLUCOSE 88 mg/dL (70-99); POTASSIUM 3.7 mmol/L (3.5-5.1); SODIUM 142 mmol/L (136-145)
[2017-04-19 15:12] LABS: ALBUMIN/GLOBULIN RATIO 1.1 (1.0-1.7); ALK PHOS 94 U/L (46-116); ALT (SGPT) 20 U/L (16-63); AST (SGOT) 17 U/L (15-37); TOTAL BILIRUBIN 0.9 mg/dL (0.2-1.0); TOTAL PROTEIN 7.8 g/dL (6.4-8.2)
[2017-04-19 15:33] LABS: TROPONINI < 0.017 ng/mL (0.000-0.055)
[2017-04-19 15:36] LABS: NT-PRO BNP 236 pg/mL (0-449)
[2017-04-19 15:36] LABS: CKMB INDEX 1.3 % (0-4); CREATINE KINASE 79 U/L (39-308)
== END 2017-04-19 17:20 | disposition home or self-care (01) ==
LOC: ER 12:41
DX: J98.11 Atelectasis (principal); I11.9 Hypertensive heart disease without heart failure; K21.9 Gastro-esophageal reflux disease without esophagitis; E78.00 Pure hypercholesterolemia, unspecified; Z95.1 Presence of aortocoronary bypass graft; Z86.73 Personal history of transient ischemic attack (TIA), and cerebral infarction without residual deficits; Z88.0 Allergy status to penicillin
CPT/HCPCS: 36415; 71045; 80053; 82553; 83880; 84484; 85025; 93005; 96360; 96361; 99285-25; J7030

== ENCOUNTER 2017-05-12 10:06 | Emergency (ER) | payer MEDICARE ==
[2017-05-12 10:59] LABS: ADD MAN DIFF? NO
[2017-05-12] MEDS: ONDANSETRON ODT 4 MG TAB.RAPDIS. PO ×2 (10:59)
[2017-05-12 11:08] LABS: BASO # 0.1 x10^3/uL (0.0-0.2); BASO % 1 % (0-3); EOS # 0.2 x10^3/uL (0.0-0.7); EOS % 4 % (0-3); HEMATOCRIT 40.4 % (39.0-53.0); HEMOGLOBIN 13.7 g/dL (13.0-17.5); LYMPH # 1.4 x10^3/uL (1.0-4.8); LYMPH % 30 % (24-48); MEAN CORPUSCULAR HEMOGLOBIN 31 pg (25-35); MEAN CORPUSCULAR HGB CONC 34 g/dL (31-37); MEAN CORPUSCULAR VOLUME 92 fL (79-100); MONO # 0.4 x10^3/uL (0.0-1.1); MONO % 8 % (0-9); NEUT # 2.7 x10^3uL (1.8-7.7); NEUT % 57 % (31-73); PLATELET COUNT 214 x10^3/uL (140-400); RED BLOOD COUNT 4.37 x10^6/uL (4.30-5.70); RED CELL DISTRIBUTION WIDTH 14.6 % (11.5-14.5); WHITE BLOOD COUNT 4.8 x10^3/uL (4.0-11.0)
[2017-05-12 11:16] LABS: ANION GAP 7 (6-14); BLOOD UREA NITROGEN 22 mg/dL (8-26); BUN/CREATININE RATIO 17 (6-20); CALCIUM 9.1 mg/dL (8.5-10.1); CARBON DIOXIDE 30 mmol/L (21-32); CHLORIDE 101 mmol/L (98-107); CREATININE 1.3 mg/dL (0.7-1.3); GFR 64.4; GLUCOSE 103 mg/dL (70-99); POTASSIUM 4.1 mmol/L (3.5-5.1); SODIUM 138 mmol/L (136-145)
[2017-05-12 11:21] LABS: ALBUMIN 3.5 g/dL (3.4-5.0); ALK PHOS 84 U/L (46-116); ALT (SGPT) 26 U/L (16-63); AST (SGOT) 20 U/L (15-37); TOTAL BILIRUBIN 0.8 mg/dL (0.2-1.0)
== END 2017-05-12 11:59 | disposition home or self-care (01) ==
LOC: ER 10:06
DX: R51 Headache (principal); R29.810 Facial weakness; R42 Dizziness and giddiness; E78.00 Pure hypercholesterolemia, unspecified; K21.9 Gastro-esophageal reflux disease without esophagitis; I11.9 Hypertensive heart disease without heart failure; Z95.1 Presence of aortocoronary bypass graft; Z86.73 Personal history of transient ischemic attack (TIA), and cerebral infarction without residual deficits; Z88.0 Allergy status to penicillin
CPT/HCPCS: 36415; 70450; 80053; 85025; 93005; 99285-25; Q0162

== ENCOUNTER 2017-09-20 21:01 | Emergency (ER) | payer MEDICARE ==
[2017-09-20] MEDS: ERYTHROMYCIN 0.5% OPHTH OINTMENT 1GM TUBE. OS (21:42)
== END 2017-09-20 21:43 | disposition home or self-care (01) ==
LOC: ER 21:43
DX: H10.89 Other conjunctivitis (principal); J02.9 Acute pharyngitis, unspecified; K21.9 Gastro-esophageal reflux disease without esophagitis; E78.00 Pure hypercholesterolemia, unspecified; I11.9 Hypertensive heart disease without heart failure; Z86.73 Personal history of transient ischemic attack (TIA), and cerebral infarction without residual deficits; Z88.0 Allergy status to penicillin
CPT/HCPCS: 99284

== ENCOUNTER → 2018-03-13 | Outpatient (CLI) | payer MEDICARE, OTHER ==
[2017-09-28 14:15] VITALS: BP 141/78
[~2018-03-13] MED LIST changes: +ACET325T9 PO; -AMLO5TAB2 PO; +AMLO5TAB7 PO; +BARIUM SULFATE 40% (APPLE) 148 GM PWD. PO ONE; +ERYT1OIN6 LEFTEYE; -FERR-26 PO; +FERR325T14 PO; +HYDR-3164 PO; -HYDR-971 PO; -HYDR12.53 PO; +HYDR12.575 PO; +LISI-130 PO; -LISI40TA PO; -METO50TA2 PO; +METO50TA6 PO; +VENTOLIN HFA18 GM INH
--- NOTE | 2018-03-13 13:23 | RAD ---
Indication: Dysphagia TECHNIQUE: Fluoroscopy-guided video swallow study with total fluoroscopy time of 1.7 minutes. The study was performed by speech pathologist with radiologist present. COMPARISON: None FINDINGS: Thin liquid, pudding, solid food consistencies were tested. Small amount of residual seen in the piriform sinuses. Transient penetration with clearance without aspiration. IMPRESSION: As above. Please see detailed notes by speech pathologist in patient's chart for full information. Electronically signed by: Tony Gross DO (03/13/2018 1:20 PM) [facility]
== END | disposition home or self-care (01) ==
LOC: RAD 13:48
PROVIDERS: ATTEND Family Medicine
DX: R13.12 Dysphagia, oropharyngeal phase (principal); Z86.73 Personal history of transient ischemic attack (TIA), and cerebral infarction without residual deficits
CPT/HCPCS: 74230; 92526; 92611; G8996; G8997; G8998